=== PATIENT | male | born 1955 | race Caucasian/White ===

== ENCOUNTER 2024-03-18 15:30 | Emergency (ER) | payer MEDICARE, SELFPAY ==
--- NOTE | ~2024-03-18 | XR_ITS ---
XR chest 2V DATE: 03/18/2024 16:16 INDICATION: Cough TECHNIQUE: 2 views COMPARISON: None FINDINGS: Normal heart size. Mild aortic unfolding. No hilar or mediastinal enlargement. Minimal bilateral apical capping. Possible 7 mm nodular density overlying the lateral right apical area. The lungs are clear of infiltrate or consolidation. No pleural effusion or pulmonary vascular congest ion or pneumothorax is detected. Degenerative spurring of the thoracic spine. IMPRESSION: Possible 7 mm nodular density lateral right apical area; consider CT thorax for further e valuation. Otherwise no active cardiopulmonary disease Reviewed, dictated and finalized at location A. T TECHNICAL SPECIALIST IMPRESSION: Possible 7 mm nodular density lateral right apical area; consider C T thorax for further evaluation. Otherwise no active cardiopulmonary disease
[2024-03-18 15:46] VITALS: BP 169/84; PULSE 80; RESP 18; TEMP 36.7; O2SAT 98
--- NOTE | 2024-03-18 16:45 | ED.GENADULT ---
HPI - General Adult General Chief complaint: Upper Respiratory Infection Stated complaint: Sinus Congestion Source: patient Mode of arrival: ambulatory Limitations: no limitations History of Present Illness HPI narrative: Patient presents for evaluation of sick symptoms for last 3 weeks. Symptoms include sinus congestion, sore throat, bilateral ear discomfort, weakness, fever, cough, SOB during coughing episodes and a few episodes of diarrhea. No nausea or vomiting. Both of his parents with whom he lives or hospitalized recently for pneumonia. He smokes a quarter pack per day. He took Mucinex DM. He is not sure whether made considerable difference in his symptoms. Related Data Allergies Allergy/AdvReac Type Severity Reaction Status Date / Time No Known Allergies Allergy Verified 03/18/24 16:14 Review of Systems Review of Systems: CONSTITUTIONAL: Reports fever and weakness Denies chills. EYES: Denies visual changes, redness, or discharge. ENT: Reports sinus congestion, sore throat, bilateral ear discomfort CARDIOVASCULAR: Denies chest pain, palpitations, or edema. RESPIRATORY: Reports cough and shortness of breath. GASTROINTESTINAL: Reports diarrhea. Denies abdominal pain, nausea, or vomiting GENITOURINARY: Denies dysuria or hematuria. SKIN: Denies rash or itching. MUSCULOSKELETAL: Denies back pain, joint pain, or myalgia. NEUROLOGIC: Denies headache, numbness, dizziness, or weakness. PSYCHIATRIC: Denies anxiety or depression. [facility] Past Medical History Medical History No pertinent past medical history Surgical History Surgical History No pertinent past surgical history Family History Family History Mother Family history non-contributory Social History Social History Smoking packs per day: 0.25 Smoking cigarettes per day: 5.0 Years smoked: 50 Smoking pack-years: 12.50 Smoking status: Current every day smoker Tobacco type: cigarettes Substance use: never Living arrangements: with family Gender identity (if verbalized by the patient): Male Sexual Orientation (if Verbalized by the Patient): Straight or Heterosexual Spiritual care concerns: No Exam Narrative: GENERAL: Well-appearing, well-nourished, and in no acute distress. HEAD: Normocephalic, atraumatic. EYES: PERRLA and EOMI. ENT: Nares clear, no rhinorrhea or epistaxis. Mucous membranes moist. Posterior pharyngeal erythema without exudate. Uvula is midline. Bilateral TMs pearly chisholm nonbulging NECK: Supple. No adenopathy or masses. No carotid bruits or JVD CHEST: Mild wheezing in posterior lung mills bilaterally. Cough is present HEART: Regular rate and rhythm. No murmur heard. Normal peripheral pulses. ABDOMEN: Soft, nontender, nondistended, normal active bowel sounds. EXTREMITIES: Normal range of motion. No edema. SKIN: Warm, dry, no rash. NEURO: No focal deficits. Alert and oriented x3. PSYCH: Normal mood and affect. Course Course Emergency Course: This is a 69-year-old male who presented for evaluation of cough. He was givem a breathing treatment and steroids while here. Strep COVID, influenza were negative. Chest x-ray showed lung nodule. I recommended patient be transferred to the hospital for further evaluation. He declined. He would like to follow-up outpatient. Could be malignancy versus infectious in origin. 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 He is not hypoxic. Will cover him with antibiotics for community-acquired pneumonia and prednisone for wheezing. He will also be given an albuterol inhaler. I did advise that it is imperative that his timely follow-up in in the event that he has worsening symptoms he must go to the emergency department. He is in agreement with this plan. Level of Care: Express Care Visit Vital Signs Vital signs: Vital Signs Temperature 36.7 C 03/18/24 15:46 Pulse Rate 80 03/18/24 15:46 Respiratory Rate 18 03/18/24 15:46 Blood Pressure 169/84 H 03/18/24 15:46 Pulse Oximetry 98 03/18/24 15:46 Oxygen Delivery Room Air 03/18/24 15:46 Temperature 36.7 C 03/18/24 15:46 Pulse Rate 80 03/18/24 15:46 Respiratory Rate 18 03/18/24 15:46 Blood Pressure 169/84 H 03/18/24 15:46 Pulse Oximetry 98 03/18/24 15:46 Oxygen Delivery Room Air 03/18/24 15:46 Medical Decision Making Vital Signs Vital Signs: Vital Signs Temperature 36.7 C 03/18/24 15:46 Pulse Rate 80 03/18/24 15:46 Respiratory Rate 18 03/18/24 15:46 Blood Pressure 169/84 H 03/18/24 15:46 Pulse Oximetry 98 03/18/24 15:46 Oxygen Delivery Room Air 03/18/24 15:46 Temperature 36.7 C 03/18/24 15:46 Pulse Rate 80 03/18/24 15:46 Respiratory Rate 18 03/18/24 15:46 Blood Pressure 169/84 H 03/18/24 15:46 Pulse Oximetry 98 03/18/24 15:46 Oxygen Delivery Room Air 03/18/24 15:46 Lab Data Labs: Lab Results 03/18/24 03/18/24 Range/Units 17:06 17:13 POC Influenza A Ag Negative (Negative) POC Influenza B Ag Negative (Negative) POC SARS CoV-2 Ag Negative (Negative) POC Grp A Strep Screen Negative (Negative) Imaging Data Radiologist's impression: XR chest 2V DATE: 03/18/2024 16:16 INDICATION: Cough TECHNIQUE: 2 views COMPARISON: None FINDINGS: Normal heart size. Mild aortic unfolding. No hilar or mediastinal enlargement. Minimal bilateral apical capping. Possible 7 mm nodular density overlying the lateral right apical area. The lungs are clear of infiltrate or consolidation. No pleural effusion or pulmonary vascular congestion or pneumothorax is detected. Degenerative spurring of the thoracic spine. IMPRESSION: Possible 7 mm nodular density lateral right apical area; consider CT thorax for further evaluation. Otherwise no active cardiopulmonary disease Discharge Plan Discharge Clinical Impression: Lung nodule, Tobacco use, At high risk for pneumonia Patient Disposition: Home, Self-Care Condition: Stable Instructions: Antibiotic Form, How to Stop Smoking (ED), Community Acquired Pneumonia (ED), Pulmonary Nodules (ED) Additional Instructions: PLEASE FOLLOW UP ON WEDNESDAY WITH PRIMARY CARE PROVIDER FOR CT SCAN PLEASE TAKE ANTIBIOTICS AND STEROIDS DIRECTED PLEASE DO NOT SMOKE IF YOU HAVE SHORTNESS OF BREATH OR WORSENING SYMPTOMS, PLEASE GO IMMEDIATELY TO THE EMERGENCY DEPARTMENT Patient Language: Mozambican Prescriptions: New azithromycin 250 mg tablet See Rx Instructions .ROUTE .COMPLEX Qty: 6 0RF Rx Instructions: For 250 mg dose pack: take 500 mg today (day 1), then 250 mg for 4 days (days 2-5) amoxicillin-pot clavulanate 875-125 mg tablet 1 tablet PO Q12H Qty: 20 0RF prednisone 50 mg tablet 50 mg PO DAILY Qty: 5 0RF albuterol sulfate 90 mcg/actuation HFA aerosol inhaler 2 puff inhalation QID PRN (Reason: shortness of breath or wheezing) Qty: 8.5 0RF Follow-up/Referrals: Aman Saucedo DO [Physician] - Time of Disposition: 17:27
[2024-03-18] MEDS: IPRATROPIUM 0.5 MG/ALBUTEROL SULFATE 2.5 MG AMPUL.NEB 3 ML INHALATION (16:50)
[2024-03-18] MEDS: methylPREDNISolone SOD SUCC 125 MG VIAL IM (16:50)
[2024-03-18 17:08] LABS: EDSTREPNEGPOS1 Negative (Negative)
[2024-03-18 17:16] LABS: EDCOVIDSCREEN Negative (Negative); EDINFLUASCREEN Negative (Negative); EDINFLUBSCREEN Negative (Negative)
== END 2024-03-18 17:30 | disposition home or self-care (01) ==
PROVIDERS: Emergency Provider Nurse Practitioner
DX: R91.1 Solitary pulmonary nodule (principal); F17.210 Nicotine dependence, cigarettes, uncomplicated; Z20.822 Contact with and (suspected) exposure to COVID-19
CPT/HCPCS: 71046; 87081; 87426; 87804; 87880; 96372; 99203; G0463; J2919

== ENCOUNTER 2024-08-25 23:05 | Emergency (ER) | payer MEDICARE, SELFPAY ==
[2024-08-25 23:34] VITALS: BP 162/80; PULSE 67; RESP 16; TEMP 36.7; O2SAT 99
--- NOTE | 2024-08-26 01:22 | PC.NURSE ---
pt to buying intern I think i am going to leave. pt ambulatory with steady gait to exit.
== END 2024-08-26 01:58 | disposition left against medical advice (07) ==
LOC: ANHED 08-26 01:46
DX: N50.89 Other specified disorders of the male genital organs (principal)
CPT/HCPCS: 99199

== ENCOUNTER 2024-08-26 15:24 | Emergency (ER) | payer MEDICARE, SELFPAY ==
[2024-08-26 15:35] VITALS: BP 157/74; PULSE 77; RESP 20; TEMP 36.7; O2SAT 96
[2024-08-26] MEDS: TETANUS,DIPHTHERIA,AC PERTUSSIS ADULT (0.5 ML) BOOSTRIX IM (15:57)
--- NOTE | 2024-08-26 16:19 | ED.GENADULT ---
HPI - General Adult General Chief complaint: Skin/Abscess/Foreign Body Stated complaint: tick bite Source: patient Mode of arrival: ambulatory Limitations: no limitations History of Present Illness HPI narrative: Patient presents for evaluation of a tick bite to the scrotum that occurred yesterday. He observe the tick on his scrotum last night around 2300 at which time he removed it. He states he is certain that the bite occurred yesterday. Patient identifies it as being a deer tick. He is not diabetic. Denies any fever, chills, lymphadenopathy, drainage from the area. He does report some irritation and itching at the site. Date of last tetanus unknown. Related Data Home Medications Medication Instructions Recorded Confirmed Last Taken Type No Home Medications 08/26/24 Unknown History Allergies Allergy/AdvReac Type Severity Reaction Status Date / Time No Known Allergies Allergy Verified 08/26/24 15:38 Review of Systems Review of Systems: CONSTITUTIONAL: Denies fever, chills, or sweats. EYES: Denies visual changes, redness, or discharge. ENT: Denies rhinorrhea, congestion, sore throat, or otalgia. CARDIOVASCULAR: Denies chest pain, palpitations, or edema. RESPIRATORY: Denies cough or dyspnea. GASTROINTESTINAL: Denies abdominal pain, nausea, vomiting, or diarrhea. GENITOURINARY: Denies dysuria or hematuria. SKIN: reports irritation and itching to the scrotum following recent tick bite MUSCULOSKELETAL: Denies back pain, joint pain, or myalgia. NEUROLOGIC: Denies headache, numbness, dizziness, or weakness. PSYCHIATRIC: Denies anxiety or depression. [facility] Past Medical History Medical History No pertinent past medical history Surgical History Surgical History No pertinent past surgical history Family History Family History Mother Family history non-contributory Social History Social History Smoking packs per day: 0.25 Smoking cigarettes per day: 5.0 Years smoked: 50 Smoking pack-years: 12.50 Smoking status: Current every day smoker Tobacco type: cigarettes Substance use: never Living arrangements: with family Gender identity (if verbalized by the patient): Male Sexual Orientation (if Verbalized by the Patient): Straight or Heterosexual Spiritual care concerns: No Exam Narrative: GENERAL: Well-appearing, well-nourished, and in no acute distress. HEAD: Normocephalic, atraumatic. EYES: PERRLA and EOMI. ENT: Nares clear, no rhinorrhea or epistaxis. Mucous membranes moist. Oropharynx without tonsillar hypertrophy exudate or other lesions. Bilateral TMs pearly chisholm nonbulging NECK: Supple. No adenopathy or masses. No carotid bruits or JVD CHEST: Clear to auscultation. No respiratory distress. No wheezes rales or rhonchi HEART: Regular rate and rhythm. No murmur heard. Normal peripheral pulses. ABDOMEN: Soft, nontender, nondistended, normal active bowel sounds. GENITAL: no external genital lesions. No inguinal lymphadenopathy. No scrotal swelling. There is mild erythema to the scrotum without any visible tick or tick fragment EXTREMITIES: Normal range of motion. No edema. SKIN: Warm, dry, no rash. NEURO: No focal deficits. Alert and oriented x3. PSYCH: Normal mood and affect. Course Course Emergency Course: This is a 69-year-old male who presented for evaluation of a tick bite to the scrotum. He does not meet criteria for prophylaxis as tick had not been adhered to the skin for 36 hr or longer. He was updated on tetanus. He is advised to monitor the site closely and go to the emergency department if he developed a rash, inguinal lymphadenopathy, fever, increased redness. He may take Benadryl for itching. Follow-up with primary provider. Patient in agreement with plan care Level of Care: Express Care Visit Vital Signs Vital signs: Vital Signs Temperature 36.7 C 08/26/24 15:35 Pulse Rate 77 08/26/24 15:35 Respiratory Rate 08/26/24 15:35 Blood Pressure 157/74 H 08/26/24 15:35 Pulse Oximetry 96 08/26/24 15:35 Oxygen Delivery Room Air 08/26/24 15:35 Temperature 36.7 C 08/26/24 15:35 Pulse Rate 77 08/26/24 15:35 Respiratory Rate 20 08/26/24 15:35 Blood Pressure 157/74 H 08/26/24 15:35 Pulse Oximetry 96 08/26/24 15:35 Oxygen Delivery Room Air 08/26/24 15:35 Medical Decision Making Vital Signs Vital Signs: Vital Signs Temperature 36.7 C 08/26/24 15:35 Pulse Rate 77 08/26/24 15:35 Respiratory Rate 20 08/26/24 15:35 Blood Pressure 157/74 H 08/26/24 15:35 Pulse Oximetry 96 08/26/24 15:35 Oxygen Delivery Room Air 08/26/24 15:35 Temperature 36.7 C 08/26/24 15:35 Pulse Rate 77 08/26/24 15:35 Respiratory Rate 20 08/26/24 15:35 Blood Pressure 157/74 H 08/26/24 15:35 Pulse Oximetry 96 08/26/24 15:35 Oxygen Delivery Room Air 08/26/24 15:35 Discharge Plan Discharge Clinical Impression: Tick bite Patient Disposition: Home Condition: Stable Instructions: Antibiotic Form, Tick Bite (ED) Additional Instructions: BENADRYL MAY HELP WITH ITCHING IF YOU DEVELOP A RASH, REDNESS OR SWELLING TO THE SCROTUM PLEASE GO TO THE ER OTHERWISE PLEASE FOLLOW UP WITH PRIMARY CARE NEXT WEEK Patient Language: Somali Prescriptions: No Action No Home Medications Follow-up/Referrals: Zara Gu DO [Physician] - Time of Disposition: 15:52
== END 2024-08-26 16:17 | disposition home or self-care (01) ==
PROVIDERS: Emergency Provider Nurse Practitioner
DX: S30.863A Insect bite (nonvenomous) of scrotum and testes, initial encounter (principal); W57.XXXA Bitten or stung by nonvenomous insect and other nonvenomous arthropods, initial encounter; Z23 Encounter for immunization; F17.210 Nicotine dependence, cigarettes, uncomplicated
CPT/HCPCS: 90471; 90715; 99212; G0463